=== PATIENT | female | born 1945 | race Caucasian/White ===

== ENCOUNTER → 2017-02-16 | Outpatient (CLI) | payer OTHER ==
[2016-05-06 09:22] VITALS: BP 182/75
[2017-02-16 09:22] LABS: CREATININE 1.15 mg/dL (0.55-1.02)
--- NOTE | 2017-02-17 11:11 | CT ---
HISTORY: Hematuria. Hypertension. Status post hysterectomy and cholecystectomy. Study: Computed tomography of the abdomen and pelvis: Multiple axial images were obtained throughou t the abdomen and pelvis after the ingestion of oral contrast and injection of intravascular contrast per standard protocol. Radiation dose reduction techniques utilized. Comparison: None Findings: There is minimal linear atelectatic change/infiltrate or scarring in the left lung base. No pleural effusions or parenchymal infiltrates are identified. Borderline cardiomegaly is noted. The patient is status post median sternotomy. There appears to most likely be the leads of an electronic cardiac device within the right atrium and 1 in the right ventricle. The abdomen demonstrates no focal lesions of the liver. Patient is status post cholecystectomy. Min imal biliary duct dilatation is noted, not an unexpected finding in a patient who is status post chol ecystectomy. Mild pancreatic atrophy is noted. The spleen is normal in its appearance. The adrenal glands are normal. The kidneys are normal. I see no evidence of renal calculi, ureteral calculi or hydronephrosis. Mild atherosclerotic changes noted in the abdominal aorta and its major branches. Atherosclerotic changes noted in the iliac arteries. Patient is status post hysterectomy. I see no adnexal masses. Scattered small phleboliths present. The bladder contour is smooth. A very tiny fa t containing umbilical hernia is noted. The stomach is nondistended. The duodenum is normal in its appearance. The small bowel is nondisten ded. I see no evidence of mesenteric adenopathy. The terminal ileum is normal. The appendix is nor mal. There are scattered diverticula extending from the cecum, ascending colon and transverse colon. There are numerous extending from the descending colon. Numerous extend from the sigmoid colon as well. I see no evidence of diverticulitis. The region of the rectum is normal. No evidence of pleu ral effusion is noted. Rijawid-ly-kihv degenerative changes noted in the hips. Moderate lumbar spondylosis is noted, predom inating at L2/L3 and L5/S1. IMPRESSION: 1. Diverticulosis of a moderate to moderately severe degree without evidence of diverticulitis. 2. I see no evidence of renal calculi, hydronephrosis or renal mass. The ureters are nondilated. T he bladder is smooth. Reported By:
== END | disposition home or self-care (01) | DRG 696 ==
LOC: RAD 08:56
PROVIDERS: ATTEND Nuclear Medicine Nuclear Cardiology
DX: R31.0 Gross hematuria (principal); K57.90 Diverticulosis of intestine, part unspecified, without perforation or abscess without bleeding
CPT/HCPCS: 36415; 74177; 82565; 84520

== ENCOUNTER 2017-07-14 10:38 | Observation (INO) | payer OTHER ==
[2017-07-14] MEDS ORDERED: PHENERGAN INJ 25 MG IVP PRN (11:45)
[2017-07-14] MEDS ORDERED: ZOFRAN INJ 4 MG VIAL IVP PRN (11:45)
[2017-07-14] MEDS ORDERED: PEPCID 20 MG IV PREMIX* 20 MG/50 ML BAG IV PRN (11:45)
--- NOTE | 2017-07-14 11:59 | DR.H&P ---
H&P - History & Physical for Day of: H&P Date: 07/14/17 - Chief Complaint Chief Complaint: N/V/D X 2 DAYS, WEAK - Allergies Allergies/Adverse Reactions: Allergies Allergy/AdvReac Type Severity Reaction Status Date / Time MS MU Inhibitors Allergy Verified 05/06/16 10:55 [MU Inhibitors] MS Ciprofloxacin [From Cipro] Allergy Verified 05/05/16 16:23 MS Metronidazole Allergy Verified 05/05/16 16:23 [From Flagyl] MS Nitrofurantoin Allergy Verified 05/06/16 10:55 [From Macrobid] - History of Present Illness History of Present Illness: The patient is a 71-year-old white female who presents to the Clinic with complaint of 2 day history of nausea vomiting and diarrhea. States she's vomited 4 times this morning. States blood pressure this morning at 6:30 was 189/87. In office setting blood pressure 94/64 and on repeat 86/58. States that she has had chills. Initial temp was 102.6 on repeat 103 Fahrenheit. The patient complains of upper abdominal pain. denies any hematochezia or melanotic stool. Does complain of burning with urination. Patient has history of CAD. - Past Medical History Past Medical History: Coronary Artery Disease, Hypertension Additional Medical History: Glaucoma, Stress test Negative [facility] 2016. - Past Surgical History Surgical History: CABG/Valve Surgery, Other - Family History Family Medical History: Heart Failure, Hypertension - Social History Does patient currently use any type of tobacco product: No Have you used tobacco products in the last 12 months: No Type of Tobacco Use: None Does any household member use tobacco: No Alcohol Use: None Drug Use: None - Review of Systems Constitutional: Fever, Chills, Weakness, Malaise Eyes: No Symptoms Reported ENT: No Symptoms Reported Respiratory: No Symptoms Reported Cardiovascular: No Symptoms Reported Gastrointestinal: Nausea, Vomiting, Abdominal Pain, Diarrhea Genitourinary: No Symptoms Reported Musculoskeletal: No Symptoms Reported Skin: No Symptoms Reported Neurological: No Symptoms Reported - Physical Exam Vital Signs: Blood Pressure [Right Arm] 182/75 Blood Pressure 182/75 Oriented: Normal Eyes: Normal Ear: Normal Nose: Normal Throat: Other (MUCOUS MEMBRANES TACHY) Respiratory: Clear Throughout Cardiovascular: Normal : Normal Auscultation: Bowel Sounds: Normal Palpation: Normal Tenderness: Diffuse, Epigastric Skin: Decreased Turgur Musculoskeletal: Normal Psychiatric: Normal Mood Description: Calm Affect: Normal Speech Pattern: Clear - Assessment/Plan (1) Acute gastroenteritis Status: Acute Plan: LABS, IV HYDRATION (2) Hypotension Status: Acute Plan: LABS, IV HYDRATION (3) Dehydration Status: Acute Plan: LABS, IV HYDRATION (4) Dysuria Status: Acute Plan: UA, UA C&S (5) Fever Status: Acute Plan: LABS, IV HYDRATION
[2017-07-14] MEDS: NS 1000 ML 1,000 ML IV SCH ×2 (12:13→22:01)
[2017-07-14 12:24] LABS: BASOPHILS % (AUTO) 0.4 % (0.2-1.0); EOSINOPHILS # (AUTO) 0.1 x10^3/uL (0.0-0.2); HEMATOCRIT 40.2 % (36.0-47.0); HEMOGLOBIN 13.9 g/dL (12.0-16.0); LYMPHOCYTES # (AUTO) 0.4 X10^3/uL (1.3-2.9); LYMPHOCYTES % (AUTO) 4.3 % (21.0-51.0); MEAN CORPUSCULAR HEMOGLOBIN 31.4 pg (27.0-34.0); MEAN CORPUSCULAR HGB CONC 34.5 g/dL (33.0-35.0); MEAN CORPUSCULAR VOLUME 91.1 fL (80.0-100.0); MEAN PLATELET VOLUME 8.6 fL (7.4-11.0); MONOCYTES # (AUTO) 0.2 x10^3/uL (0.3-0.8); MONOCYTES % (AUTO) 2.1 % (0.0-13.0); NEUTROPHILS % (AUTO) 92.2 % (42.0-75.0); PLATELET COUNT 176 X10^3/uL (150.0-450.0); RED BLOOD COUNT 4.41 X10^6/uL (3.5-5.4); RED CELL DISTRIBUTION WIDTH 13.7 % (11.6-16.5); WHITE BLOOD COUNT 8.7 X10^3/uL (3.6-10.0)
[2017-07-14 12:34] LABS: ALANINE AMINOTRANSFERASE 28 Units/L (12-78); ALBUMIN 3.6 g/dL (3.4-5.0); ALKALINE PHOSPHATASE 82 Units/L (46-116); AMYLASE 66 Units/L (25-115); ASPARTATE AMINO TRANSFERASE 28 Units/L (15-37); BLOOD UREA NITROGEN 28 mg/dL (7-18); CALCIUM 8.4 mg/dL (8.5-10.1); CARBON DIOXIDE 26.6 mmol/L (21-32); CHLORIDE 105 mmol/L (98-107); CREATININE 1.95 mg/dL (0.55-1.02); LIPASE 162 Units/L (73-393); SODIUM 141 mmol/L (136-145); TOTAL PROTEIN 6.7 g/dL (6.4-8.2); eGFR BLACK RACES 32 (>60); eGFR NON BLACK RACES 27 (>60)
[2017-07-14] MEDS: MORPHINE SULFATE INJ 2 MG INJ IVP PRN ×3 (12:38→21:19)
[2017-07-14 13:26] LABS: BAND NEUTROPHILS % 12 % (0-10)
[2017-07-14 13:27] LABS: PLATELET MORPHOLOGY COMMENT NORMAL (NORMAL)
[2017-07-14 13:35] VITALS: BMI 29.0
--- NOTE | 2017-07-14 14:18 | RAD ---
HISTORY: Nausea and vomiting. Epigastric pain. Study: Upright PA chest with supine and upright abdominal views Comparison: Chest radiograph 05/06/2016, CT of the abdomen pelvis 02/26/2017 Findings: Mild prominence of the lung markings is noted suggesting minimal pulmonary vascular congestion. The heart size is mildly enlarged. Patient is status post median sternotomy. Electronic cardiac device is present on the left with its leads appearing to be in appropriate position. The abdomen shows scattered large and small bowel gas. A couple of air-fluid levels are present. I see no definite evidence of bowel obstruction or pneumoperitoneum. Mild convex left lumbar scoliosis is noted. Mild degenerative changes present in the lumbar spine, sacroiliac joints and hips. IMPRESSION: 1. Mild cardiomegaly and findings suggesting minimal pulmonary vascular congestion. Underlying inte rstitial pneumonia cannot be excluded. 2. I see no definite evidence of bowel obstruction or pneumoperitoneum. Follow-up as clinically ind icated. Reported By:
[2017-07-14] MEDS: NORCO 5/325 MG TAB PO PRN (16:21)
[2017-07-14 18:51] LABS: BILIRUBIN,URINE NEGATIVE (NEGATIVE); BLOOD/HEMOGLOBIN,URINE 2+ (NEGATIVE); GLUCOSE, URINE NEGATIVE (NEGATIVE); KETONES,URINE NEGATIVE (NEGATIVE); LEUKOCYTE ESTERASE ,URINE 1+ (NEGATIVE); NITRITES,URINE NEGATIVE (NEGATIVE); PROTEIN,URINE 1+ (NEGATIVE); UROBILINOGEN,URINE NORMAL (NORMAL)
[2017-07-14 19:03] LABS: APPEARANCE,URINE CLEAR (CLEAR); COLOR,URINE AMBER (YELLOW)
[2017-07-14 19:04] LABS: AMORPHOUS SEDIMENT,UR 1+ /HPF (NEGATIVE); BACTERIA,URINE TRACE /HPF (NEGATIVE); SQUAMOUS EPITHELIAL CELL,UR MODERATE /HPF (NEGATIVE)
[2017-07-14] MEDS ORDERED: PATIENT'S HOME MEDICATION (Ondansetron [Ondansetron Odt] 4 MG) PO PRN (21:25)
[2017-07-14] MEDS: ROCEPHIN 1 GM IV PREMIX IV SCH (22:01)
[2017-07-15] MEDS: NORCO 5/325 MG TAB PO PRN (03:55)
[2017-07-15 06:33] LABS: BASOPHILS % (AUTO) 0.2 % (0.2-1.0); EOSINOPHILS # (AUTO) 0.4 x10^3/uL (0.0-0.2); EOSINOPHILS % (AUTO) 3.2 % (0.9-2.9); HEMATOCRIT 34.8 % (36.0-47.0); LYMPHOCYTES # (AUTO) 1.3 X10^3/uL (1.3-2.9); LYMPHOCYTES % (AUTO) 10.9 % (21.0-51.0); MEAN CORPUSCULAR HEMOGLOBIN 31.4 pg (27.0-34.0); MEAN CORPUSCULAR HGB CONC 34.6 g/dL (33.0-35.0); MEAN PLATELET VOLUME 8.9 fL (7.4-11.0); MONOCYTES # (AUTO) 0.8 x10^3/uL (0.3-0.8); MONOCYTES % (AUTO) 6.4 % (0.0-13.0); NEUTROPHILS # (AUTO) 9.8 x10^3/uL (2.2-4.8); NEUTROPHILS % (AUTO) 79.3 % (42.0-75.0); PLATELET COUNT 138 X10^3/uL (150.0-450.0); RED BLOOD COUNT 3.82 X10^6/uL (3.5-5.4); RED CELL DISTRIBUTION WIDTH 13.9 % (11.6-16.5); WHITE BLOOD COUNT 12.3 X10^3/uL (3.6-10.0)
[2017-07-15 06:38] LABS: BLOOD UREA NITROGEN 29 mg/dL (7-18); CHLORIDE 104 mmol/L (98-107); SODIUM 138 mmol/L (136-145); eGFR BLACK RACES 33 (>60); eGFR NON BLACK RACES 28 (>60)
--- NOTE | 2017-07-15 07:48 | RAD ---
HISTORY: Congestive heart failure Study: Chest AP portable Comparison: 05/05/2016 Findings: The patient is status post median sternotomy. There is a pacemaker present on the left obscuring the left lung apex. The heart is mildly enlarged. No congestive heart failure is noted. No acute alveolar infiltrates or pleural effusions are identified. The bony thorax is unremarkable. IMPRESSION: Mild cardiomegaly without congestive heart failure No infiltrates Reported By:
[2017-07-15] MEDS: PROTONIX TAB 40 MG PO SCH (08:50)
[2017-07-15] MEDS: ROCEPHIN 1 GM IV PREMIX IV SCH (08:50)
[2017-07-15] MEDS: CARAFATE PO SCH ×2 (08:50→21:27)
[2017-07-15] MEDS: CLARITIN PO SCH (08:50)
[2017-07-15] MEDS ORDERED: PATIENT'S HOME MEDICATION (Losartan Potassium [Losartan Potassium] 25 MG) PO SCH (09:00)
[2017-07-15] MEDS: COMBIGAN EYE DROPS EACHEYE SCH ×2 (09:11→21:28)
[2017-07-15] MEDS: COZAAR PO SCH (09:35)
[2017-07-15] MEDS: TOPROL XL PO SCH (09:35)
[2017-07-15] MEDS: NS 1000 ML 1,000 ML IV SCH ×2 (14:56→18:21)
[2017-07-15] MEDS: LIPITOR TAB 20 MG PO SCH (21:27)
[2017-07-16 06:28] LABS: BASOPHILS % (AUTO) 0.4 % (0.2-1.0); EOSINOPHILS # (AUTO) 0.4 x10^3/uL (0.0-0.2); HEMATOCRIT 34.9 % (36.0-47.0); LYMPHOCYTES # (AUTO) 1.6 X10^3/uL (1.3-2.9); LYMPHOCYTES % (AUTO) 22.1 % (21.0-51.0); MEAN CORPUSCULAR HEMOGLOBIN 31.4 pg (27.0-34.0); MEAN CORPUSCULAR HGB CONC 34.4 g/dL (33.0-35.0); MEAN CORPUSCULAR VOLUME 91.1 fL (80.0-100.0); MEAN PLATELET VOLUME 8.8 fL (7.4-11.0); MONOCYTES # (AUTO) 0.4 x10^3/uL (0.3-0.8); MONOCYTES % (AUTO) 5.4 % (0.0-13.0); NEUTROPHILS # (AUTO) 4.8 x10^3/uL (2.2-4.8); NEUTROPHILS % (AUTO) 66.1 % (42.0-75.0); PLATELET COUNT 146 X10^3/uL (150.0-450.0); RED BLOOD COUNT 3.83 X10^6/uL (3.5-5.4); RED CELL DISTRIBUTION WIDTH 13.8 % (11.6-16.5); WHITE BLOOD COUNT 7.3 X10^3/uL (3.6-10.0)
[2017-07-16 06:45] LABS: ALANINE AMINOTRANSFERASE 22 Units/L (12-78); ALBUMIN 2.8 g/dL (3.4-5.0); ALKALINE PHOSPHATASE 52 Units/L (46-116); ASPARTATE AMINO TRANSFERASE 25 Units/L (15-37); BLOOD UREA NITROGEN 19 mg/dL (7-18); CALCIUM 7.7 mg/dL (8.5-10.1); CARBON DIOXIDE 26.1 mmol/L (21-32); CHLORIDE 109 mmol/L (98-107); COR CA(FOR HYPOALB) 8.7 mg/dL (8.5-10.1); SODIUM 142 mmol/L (136-145); TOTAL PROTEIN 5.9 g/dL (6.4-8.2); eGFR BLACK RACES 52 (>60); eGFR NON BLACK RACES 43 (>60)
[2017-07-16] MEDS: TOPROL XL PO SCH (08:11)
[2017-07-16] MEDS: ROCEPHIN 1 GM IV PREMIX IV SCH (08:11)
[2017-07-16] MEDS: COZAAR PO SCH (08:11)
[2017-07-16] MEDS: CARAFATE PO SCH ×2 (08:11→21:31)
[2017-07-16] MEDS: PROTONIX TAB 40 MG PO SCH (08:12)
[2017-07-16] MEDS: CLARITIN PO SCH (08:12)
[2017-07-16] MEDS: COMBIGAN EYE DROPS EACHEYE SCH ×2 (08:13→21:31)
--- NOTE | 2017-07-16 14:48 | CT ---
HISTORY: Epigastric pain, nausea, vomiting Study: CT abdomen pelvis without contrast Comparison: 02/16/2017 Technique: Axial noncontrast images with coronal and sagittal reformats. Dose reduction procedures we re used with mA/kv adjusted for body size. The examination is limited due to the lack of intravenous contrast. Findings: The right lung base is clear. There is some subsegmental atelectasis in the left lung base. The liver , spleen, adrenal glands, and pancreas are within normal limits to the limitations of an unenhanced e xamination. The patient is status post cholecystectomy. The kidneys are unobstructed and without ston es. No ureteral calculi are identified. The appendix is normal. Calcific atherosclerotic change is pr esent in a nondilated abdominal aorta. No enlarged intraperitoneal or retroperitoneal lymphadenopathy is identified. There are no findings suggestive of diverticulitis or colitis. Diverticulosis is pres ent diffusely throughout the colon. Examination of the pelvis demonstrated no evidence for pelvic mas ses, pelvic fluid, or pelvic lymphadenopathy. No bladder abnormality is identified. No lytic or blast ic skeletal lesions are identified. IMPRESSION: No acute intra-abdominal or intrapelvic abnormality to the limitations of an examination performed wi thout intravenous contrast. Diffuse diverticulosis coli without evidence for diverticulitis No findings suggestive of colitis Reported By:
--- NOTE | 2017-07-16 15:23 | CT ---
Indication: Shortness of breath and pneumonia. Exam: CT chest without contrast. Comparison: None. Technique: Axial spiral images were obtained from the level above the clavicles through the adrenals without contrast. Automated dose control was utilized. Findings: The thyroid gland is unremarkable. There is mild calcified plaque throughout the aorta with moderate coronary artery calcifications. Postop changes are seen in the mediastinum and sternum. The re is a left pacemaker in place with the pacing wires in good position into the left heart. There is no mediastinal mass or adenopathy is seen. The adrenals are normal. There is a tiny left pleural effu bradley or pleural thickening with mild subsegmental linear densities along the lung base posteriorly an d extending into the lingula inferiorly. The adrenals are normal. The gallbladder has been removed an d the visualized upper abdomen is unremarkable. There are 3-4 mm pleural-based nodules or scar along the right lung base extending superiorly . There are moderate degenerate changes seen in the spine wi th no aggressive osseous lesion . There is mild scoliosis. Impression: Mild subsegmental atelectasis vs early infiltrates or scarring along the left lung base and lingula . There is a tiny left pleural effusion vs pleural thickening posteriorly. Suggest follow-up with ches t x-rays. Tiny pleural-based nodules or scars along the right lower lobe posteriorly, suggest short-term follow -up to assure stability or resolution. Status post CABG surgery with no mediastinal mass or adenopathy. Reported By:
[2017-07-16] MEDS: NS 1000 ML 1,000 ML IV SCH (18:07)
--- NOTE | 2017-07-16 18:18 | PCM.PROG ---
Progress Note - Progress Note for Day of Date: 07/16/17 - Subjective Subjective: 71 WF ADMITTED WITH S/O GE WITH N/V/D. PT STARTED ON IV ATBX, GENTLE IV HYDRATION WITH IMPROVED RENAL FUNCTION.PT HAS HX OF DIVERTICULOSIS, CT ORDERED TO R/O ACURE DIVERTICULITIS, COLITIS DUE TO REPORTS OF THICK MUCOUS IN STOOL. PT ALSO NPO FOR CT CHEST R/O PNEUMONIA VS EFFUSION. PT STATES SHE FEEL LITTLE BETTER TODAY, ASKING TO ADVANCE DIET. - Past Medical Family Social History Past Med/Fam/Surg Hx: No changes since H&P Allergies: Allergies MU Inhibitors Allergy (Verified 07/14/17 17:05) ciprofloxacin [From Cipro] Allergy (Verified 07/14/17 17:05) metronidazole [From Flagyl] Allergy (Verified 07/14/17 17:05) nitrofurantoin Allergy (Verified 07/14/17 17:05) - Vital Signs and I&O's Vital Signs: Temperature 97.8 F Pulse Rate [Left Brachial] 80 Respiratory Rate 18 Blood Pressure [Left Arm] 132/87 Blood Pressure [Right Arm] 131/59 Blood Pressure 182/75 O2 Sat by Pulse Oximetry 98 Intake and Output: Intake & Output 07/14/17 07/15/17 07/16/17 07/17/17 11:59 11:59 11:59 11:59 Intake Total 1380 2330 360 Balance 1380 2330 360 - Physical Exam Oriented: Normal Eyes: Normal Ear: Normal Nose: Normal Throat: Other (MUCOUS MEMBRANES TACHY) Respiratory: Diminished Cardiovascular: Normal : Normal Auscultation: Bowel Sounds: Normal Tenderness: Epigastric Skin: Decreased Turgur Musculoskeletal: Normal Psychiatric: Normal Mood Description: Calm Affect: Normal Speech Pattern: Clear, Appropriate - Laboratory and Diagnostics Result Diagrams: 07/16/17 05:34 07/16/17 05:34 Labs: 07/14/17 18:11 Urine,Clean Catch Urine Culture - Final Laboratory WBC 7.3 X10^3/uL (3.6-10.0) 07/16/17 05:34 RBC 3.83 X10^6/uL (3.5-5.4) 07/16/17 05:34 Hgb 12.0 g/dL (12.0-16.0) 07/16/17 05:34 Hct 34.9 % (36.0-47.0) L 07/16/17 05:34 MCV 91.1 fL (80.0-100.0) 07/16/17 05:34 MCH 31.4 pg (27.0-34.0) 07/16/17 05:34 MCHC 34.4 g/dL (33.0-35.0) 07/16/17 05:34 RDW 13.8 % (11.6-16.5) 07/16/17 05:34 Plt Count 146 X10^3/uL (150.0-450.0) L 07/16/17 05:34 Plt Count Comment Adequate (ADEQUATE) 07/14/17 12:10 MPV 8.8 fL (7.4-11.0) 07/16/17 05:34 Neut % (Auto) 66.1 % (42.0-75.0) 07/16/17 05:34 Lymph % (Auto) 22.1 % (21.0-51.0) 07/16/17 05:34 Carson % (Auto) 5.4 % (0.0-13.0) 07/16/17 05:34 Eos % (Auto) 6.0 % (0.9-2.9) H 07/16/17 05:34 Baso % (Auto) 0.4 % (0.2-1.0) 07/16/17 05:34 Neut # (Auto) 4.8 x10^3/uL (2.2-4.8) 07/16/17 05:34 Lymph # (Auto) 1.6 X10^3/uL (1.3-2.9) 07/16/17 05:34 Carson # (Auto) 0.4 x10^3/uL (0.3-0.8) 07/16/17 05:34 Eos # (Auto) 0.4 x10^3/uL (0.0-0.2) H 07/16/17 05:34 Baso # (Auto) 0.0 X10^3/uL (0.0-0.1) 07/16/17 05:34 Absolute Nucleated RBC 0.0 /100WBC 07/16/17 05:34 Total Counted 100 07/14/17 12:10 Neutrophils % (Manual) 70 % (39-76) 07/14/17 12:10 Band Neutrophils % 12 % (0-10) H 07/14/17 12:10 Lymphocytes % (Manual) 13 % (13-43) 07/14/17 12:10 Monocytes % (Manual) 2 % (4-9) L 07/14/17 12:10 Eosinophils % (Manual) 3 % (0-6) 07/14/17 12:10 Plt Morphology Comment Normal (NORMAL) 07/14/17 12:10 RBC Morphology Normal (NORMAL) 07/14/17 12:10 Sodium 142 mmol/L (136-145) 07/16/17 05:34 Corrected Sodium TNP 07/16/17 05:34 Potassium 3.7 mmol/L (3.5-5.1) 07/16/17 05:34 Chloride 109 mmol/L (98-107) H 07/16/17 05:34 Carbon Dioxide 26.1 mmol/L (21-32) 07/16/17 05:34 BUN 19 mg/dL (7-18) H 07/16/17 05:34 Creatinine 1.30 mg/dL (0.55-1.02) H 07/16/17 05:34 Est GFR (MDRD) Af Amer 52 (>60) L 07/16/17 05:34 Est GFR (MDRD) Non-Af 43 (>60) L 07/16/17 05:34 Glucose 83 mg/dL (65-99) 07/16/17 05:34 POC Glucose (mg/dL) 78 mg/dL (65-99) 07/14/17 15:57 Lactic Acid 1.8 mmol/L (0.4-2.0) 07/14/17 12:10 Calcium 7.7 mg/dL (8.5-10.1) L 07/16/17 05:34 Corrected Calcium 8.7 mg/dL (8.5-10.1) 07/16/17 05:34 Total Bilirubin 0.50 mg/dL (0.2-1.0) 07/16/17 05:34 AST 25 Units/L (15-37) 07/16/17 05:34 ALT 22 Units/L (12-78) 07/16/17 05:34 Alkaline Phosphatase 52 Units/L (46-116) 05/17/18 05:34 Total Protein 5.9 g/dL (6.4-8.2) L 07/16/17 05:34 Albumin 2.8 g/dL (3.4-5.0) L 07/16/17 05:34 Globulin 3.1 g/dL (2.5-4.5) 07/16/17 05:34 Albumin/Globulin Ratio 0.9 Ratio (1.1-2.1) L 07/16/17 05:34 Amylase 66 Units/L (25-115) 07/14/17 12:10 Lipase 162 Units/L (73-393) 07/14/17 12:10 Specimen Type Clean catch urine 07/14/17 18:11 Urine Color Thao (YELLOW) 07/14/17 18:11 Urine Appearance Clear (CLEAR) 07/14/17 18:11 Urine pH 5.0 (5.0 - 8.0) 07/14/17 18:11 Ur Specific [place] 1.010 (1.000-1.030) 07/14/17 18:11 Urine Protein 1+ (NEGATIVE) 07/14/17 18:11 Urine Glucose (UA) Negative (NEGATIVE) 07/14/17 18:11 Urine Ketones Negative (NEGATIVE) 07/14/17 18:11 Urine Occult Blood 2+ (NEGATIVE) 07/14/17 18:11 Urine Nitrite Negative (NEGATIVE) 07/14/17 18:11 Urine Bilirubin Negative (NEGATIVE) 07/14/17 18:11 Urine Urobilinogen Normal (NORMAL) 07/14/17 18:11 Ur Leukocyte Esterase 1+ (NEGATIVE) 07/14/17 18:11 Urine RBC 3-5 /HPF (NONE SEEN) 07/14/17 18:11 Urine WBC 3-5 /HPF (NONE SEEN) 07/14/17 18:11 Ur Squamous Epith Cells Moderate /HPF (NEGATIVE) 07/14/17 18:11 Amorphous Sediment 1+ /HPF (NEGATIVE) 07/14/17 18:11 Urine Bacteria Trace /HPF (NEGATIVE) 07/14/17 18:11 Ur Culture Indicated? Yes/culture set up 07/14/17 18:11 - Plan (1) Acute gastroenteritis Status: Acute Plan: LABS, IV HYDRATION, ATBX. STOOL STUDIES. CT ABD PELVIS, UA AND URINE CULTURES (2) Dehydration Status: Acute Plan: LABS, IV HYDRATION (3) CAD (coronary artery disease) Status: Acute Plan: BP AND LIPID CONTROL (4) CHF (congestive heart failure) Status: Acute (5) GERD (gastroesophageal reflux disease) Status: Chronic (6) Hypertension Status: Chronic Qualifiers: Hypertension type: essential hypertension Qualified Code(s): I10 - Essential (primary) hypertension
[2017-07-16] MEDS ORDERED: LASIX IVP SCH (19:00)
[2017-07-16] MEDS: LIPITOR TAB 20 MG PO SCH (21:31)
[2017-07-16] MEDS ORDERED: LASIX ONE (21:33)
[2017-07-17 00:30] LABS: CRYPTOSPORIDIUM PARVUM ANTIGEN NEGATIVE (NEGATIVE); GIARDIA LAMBLIA ANTIGEN NEGATIVE (NEGATIVE)
[2017-07-17] MEDS: NS 1000 ML 1,000 ML IV SCH (04:27)
[2017-07-17 06:42] LABS: BASOPHILS # (AUTO) 0.1 X10^3/uL (0.0-0.1); BASOPHILS % (AUTO) 1.4 % (0.2-1.0); EOSINOPHILS # (AUTO) 0.3 x10^3/uL (0.0-0.2); EOSINOPHILS % (AUTO) 5.5 % (0.9-2.9); HEMATOCRIT 36.1 % (36.0-47.0); HEMOGLOBIN 12.6 g/dL (12.0-16.0); LYMPHOCYTES # (AUTO) 2.2 X10^3/uL (1.3-2.9); LYMPHOCYTES % (AUTO) 34.8 % (21.0-51.0); MEAN CORPUSCULAR HEMOGLOBIN 31.5 pg (27.0-34.0); MEAN CORPUSCULAR HGB CONC 34.9 g/dL (33.0-35.0); MEAN CORPUSCULAR VOLUME 90.3 fL (80.0-100.0); MEAN PLATELET VOLUME 8.8 fL (7.4-11.0); MONOCYTES # (AUTO) 0.4 x10^3/uL (0.3-0.8); MONOCYTES % (AUTO) 6.7 % (0.0-13.0); NEUTROPHILS # (AUTO) 3.3 x10^3/uL (2.2-4.8); NEUTROPHILS % (AUTO) 51.6 % (42.0-75.0); PLATELET COUNT 175 X10^3/uL (150.0-450.0); RED BLOOD COUNT 3.99 X10^6/uL (3.5-5.4); RED CELL DISTRIBUTION WIDTH 13.4 % (11.6-16.5); WHITE BLOOD COUNT 6.3 X10^3/uL (3.6-10.0)
[2017-07-17 06:52] LABS: ALANINE AMINOTRANSFERASE 24 Units/L (12-78); ALBUMIN 3.2 g/dL (3.4-5.0); ALKALINE PHOSPHATASE 62 Units/L (46-116); ASPARTATE AMINO TRANSFERASE 26 Units/L (15-37); BLOOD UREA NITROGEN 16 mg/dL (7-18); CALCIUM 8.2 mg/dL (8.5-10.1); CARBON DIOXIDE 27.2 mmol/L (21-32); CHLORIDE 106 mmol/L (98-107); COR CA(FOR HYPOALB) 8.8 mg/dL (8.5-10.1); CREATININE 1.22 mg/dL (0.55-1.02); SODIUM 140 mmol/L (136-145); TOTAL PROTEIN 6.5 g/dL (6.4-8.2); eGFR BLACK RACES 56 (>60); eGFR NON BLACK RACES 46 (>60)
[2017-07-17] MEDS: COZAAR PO SCH (08:43)
[2017-07-17] MEDS: CARAFATE PO SCH (08:43)
[2017-07-17] MEDS: ROCEPHIN 1 GM IV PREMIX IV SCH (08:43)
[2017-07-17] MEDS: CLARITIN PO SCH (08:44)
[2017-07-17] MEDS: PROTONIX TAB 40 MG PO SCH (08:44)
[2017-07-17] MEDS: COMBIGAN EYE DROPS EACHEYE SCH (08:44)
[2017-07-17] MEDS: TOPROL XL PO SCH (08:44)
[2017-07-17 12:56] VITALS: BP 144/65
== END 2017-07-17 12:55 | disposition home or self-care (01) | DRG 392 ==
LOC: OBS 10:38 → UNDOADMOB 10:38 → OBS 11:25 → MED/SURG 14:20
PROVIDERS: ADMIT Internal Medicine; ATTEND Internal Medicine
DX: K52.89 Other specified noninfective gastroenteritis and colitis (principal); E86.0 Dehydration; I95.89 Other hypotension; R94.4 Abnormal results of kidney function studies; R11.2 Nausea with vomiting, unspecified; R19.7 Diarrhea, unspecified; I25.10 Atherosclerotic heart disease of native coronary artery without angina pectoris; R30.0 Dysuria; I50.9 Heart failure, unspecified; I10 Essential (primary) hypertension
CPT/HCPCS: 36415; 71045; 71250; 74022; 74176; 80048; 80053; 81001; 82150; 82274; 82705; 83605; 83690; 85025; 87045; 87086; 87328; 87329; 87336; 87427; 87449; 87493; 94760; A4222; S0028; G0378; J0696; J1940; J2270; J2405

== ENCOUNTER 2022-02-19 11:46 | Observation (INO) ==
--- NOTE | 2022-02-19 13:56 | EKG ---
Test Reason : CHEST PAIN Blood Pressure : */* mmHG Vent. Rate : 64 BPM Atrial Rate : 64 BPM P-R Int : 174 ms QRS Dur : 86 ms QT Int : 422 ms P-R-T Axes : 54 23 93 degrees QTc Int : 435 ms Atrial-paced rhythm Nonspecific ST and T wave abnormality Abnormal ECG No previous ECGs available Confirmed by Jose Gauthier ([id number]) on 02/20/2022 8:00:33 AM Referred By: Confirmed By: Jose Gauthier
[2022-02-19 14:59] LABS: BASOPHILS % (AUTO) 0.5 % (0.2-1.0); EOSINOPHILS # (AUTO) 0.3 x10^3/uL (0.0-0.2); EOSINOPHILS % (AUTO) 4.1 % (0.9-2.9); HEMATOCRIT 43.1 % (36.0-47.0); HEMOGLOBIN 14.5 g/dL (12.0-16.0); LYMPHOCYTES # (AUTO) 2.6 X10^3/uL (1.3-2.9); LYMPHOCYTES % (AUTO) 33.5 % (21.0-51.0); MEAN CORPUSCULAR HEMOGLOBIN 31.3 pg (27.0-34.0); MEAN CORPUSCULAR HGB CONC 33.8 g/dL (33.0-35.0); MEAN CORPUSCULAR VOLUME 92.6 fL (80.0-100.0); MEAN PLATELET VOLUME 8.6 fL (7.4-11.0); MONOCYTES # (AUTO) 0.7 x10^3/uL (0.3-0.8); MONOCYTES % (AUTO) 9.1 % (0.0-13.0); NEUTROPHILS # (AUTO) 4.1 x10^3/uL (2.2-4.8); NEUTROPHILS % (AUTO) 52.8 % (42.0-75.0); RED BLOOD COUNT 4.65 X10^6/uL (3.5-5.4); RED CELL DISTRIBUTION WIDTH 14.2 % (11.6-16.5); WHITE BLOOD COUNT 7.7 X10^3/uL (3.6-10.0)
[2022-02-19 15:21] LABS: ALANINE AMINOTRANSFERASE 18 Units/L (12-78); ALBUMIN 3.6 g/dL (3.4-5.0); ALKALINE PHOSPHATASE 77 Units/L (46-116); ASPARTATE AMINO TRANSFERASE 27 Units/L (15-37); BLOOD UREA NITROGEN 21 mg/dL (7-18); CALCIUM 8.9 mg/dL (8.5-10.1); CARBON DIOXIDE 29.5 mmol/L (21-32); CHLORIDE 108 mmol/L (98-107); CREATINE KINASE 131 Units/L (26-192); CREATININE 1.64 mg/dL (0.55-1.02); FREE T4 (FREE THYROXINE) 0.97 ng/dL (0.76-1.46); SODIUM 141 mmol/L (136-145); TOTAL PROTEIN 6.7 g/dL (6.4-8.2); TSH (3RD GENERATION) 2.121 uIU/mL (0.358-3.74); eGFR NON BLACK RACES 32 (>60)
[2022-02-19] MEDS: LOVENOX INJ 30 MG SYR SC SCH (16:13)
[2022-02-19] MEDS: CARAFATE PO SCH ×3 (16:20→21:39)
--- NOTE | 2022-02-19 20:31 | EKG ---
Test Reason : CHEST PAIN Blood Pressure : */* mmHG Vent. Rate : 63 BPM Atrial Rate : 63 BPM P-R Int : 198 ms QRS Dur : 76 ms QT Int : 418 ms P-R-T Axes : -27 27 105 degrees QTc Int : 427 ms Atrial-paced rhythm Abnormal ECG When compared with ECG of 19-FEB-2022 13:50, (Unconfirmed) T wave inversion less evident in Anterolateral leads Confirmed by Jose Gauthier ([id number]) on 02/20/2022 7:59:46 AM Referred By: Confirmed By: Jose Gauthier
[2022-02-19] MEDS: REQUIP PO SCH ×2 (21:33→21:40)
[2022-02-19] MEDS: CRESTOR TAB 10 MG PO SCH ×2 (21:34→21:40)
[2022-02-19] MEDS: PriLOSEC PO SCH ×2 (21:34→21:39)
[2022-02-19] MEDS: PATIENT'S HOME MEDICATION EACHEYE SCH (21:35)
--- NOTE | 2022-02-20 00:27 | DR.H&P ---
H&P - History & Physical for Day of: H&P Date: 02/19/22 - Chief Complaint Chief Complaint: Chest pain, tightness with shortness of breath - History of Present Illness History of Present Illness: The patient is a 76 yo WF who presents to [facility] with complaints of chest discomfort. Patient has history of CAD with CABG x 3 and Pacemaker insertion 2017. STates that she has been having episodes of tightness/squeezing sensation to chest with increasing fatigue and shortness of breath. States she does not have to be active for episodes to occur. States that symptoms started in December with SOB on exertion. Denies wheezing. States she is having mild swelling to lower legs. States the last 2 days she has been sitting down. States she has not felt like doing anything. Denies nausea. No other comlaints or symptoms voiced. - Past Medical History Past Medical History: Coronary Artery Disease, Hypertension Additional Medical History: Glaucoma, Stress test Negative [facility] 2017. - Past Surgical History Surgical History: CABG/Valve Surgery, Cholecystectomy, Hysterectomy - Family History Family Medical History: [place], Heart Failure - Social History Does patient currently use any type of tobacco product: No Have you used tobacco products in the last 12 months: No Type of Tobacco Use: None Does any household member use tobacco: No Alcohol Use: None Drug Use: None Risks, benefits, and alternatives of opioids discussed: No Prescription drug monitoring program results: PDMP reviewed and no concerns identified - Medications Home Medications: ciprofloxacin [From Cipro] Allergy (Mild, Verified 04/16/21 07:54) RASH clindamycin Allergy (Mild, Verified 04/16/21 07:54) NAUSEA metronidazole [From Flagyl] Allergy (Mild, Verified 04/16/21 07:54) NAUSEA Penicillins Allergy (Mild, Verified 04/16/21 07:54) NAUSEA MU Inhibitors Allergy (Unknown, Verified 04/16/21 07:54) nitrofurantoin Allergy (Unknown, Verified 04/16/21 07:54) amoxicillin [From Augmentin] Allergy (Verified 04/30/21 11:43) clavulanic acid [From Augmentin] Allergy (Verified 04/30/21 11:43) CONTINUE taking the following medications aspirin 81 mg tablet,delayed release 81 mg PO QDAY 02/19/22 [History] brimonidine 0.2 %-timolol 0.5 % eye drops (Combigan) 1 drp ophthalmic (eye) DAILY 02/19/22 [History] cholecalciferol (vitamin D3) 50 mcg (2,000 unit) capsule (Vitamin D3) 50 mcg PO DAILY 02/19/22 [History] latanoprostene bunod 0.024 % eye drops (Vyzulta) 1 drp ophthalmic (eye) DAILY 02/19/22 [History] metoprolol succinate 50 mg tablet,extended release 24 hr 1 tab PO QDAY 02/19/22 [History] omeprazole 40 mg capsule,delayed release 1 cap PO BID 02/19/22 [History] potassium chloride 10 mEq tablet,extended release(part/cryst) 1 tab PO QDAY 02/19/22 [History] ropinirole 0.5 mg tablet 1 tab PO QPM 02/19/22 [History] rosuvastatin 40 mg tablet 1 tab PO QDAY 02/19/22 [History] sucralfate 1 gram tablet 1 tab PO QID 02/19/22 [History] - Review of Systems Constitutional: Malaise Eyes: Redness ENT: No Symptoms Reported Respiratory: Shortness of Breath, SOB with Excertion Cardiovascular: Chest Pain, See HPI, Orthopnea, Edema Gastrointestinal: No Symptoms Reported Genitourinary: No Symptoms Reported Musculoskeletal: No Symptoms Reported Skin: No Symptoms Reported Neurological: No Symptoms Reported - Physical Exam Vital Signs: Temperature 97.5 F Pulse Rate [Radial] 61 Respiratory Rate 18 Blood Pressure [Left Arm] 141/61 Blood Pressure [Right Arm] 131/59 Blood Pressure 140/78 O2 Sat by Pulse Oximetry 100 Oriented: Normal, Time, Person, Place Eyes: Redness Ear: Normal Nose: Normal Throat: Normal Respiratory: Clear Throughout Cardiovascular: Normal : Normal Auscultation: Bowel Sounds: Normal Palpation: Normal Tenderness: Normal Skin: Normal Musculoskeletal: Normal Psychiatric: Normal Mood Description: Calm Affect: Normal Speech Pattern: Clear - Assessment/Plan (1) Chest pain due to CAD Status: Acute Plan: Seriel EKGs, Troponins. Probable transfer to Dr Chun, Cardiology [facility]. (2) CKD (chronic kidney disease) stage 3, GFR 30-59 ml/min Status: Acute Plan: Gentle IV Hydration (3) CAD (coronary artery disease) Qualifiers: Coronary Disease-Associated Artery/Lesion type: bypass graft Associated angina: with unstable angina Status: Acute (4) Hypertension Qualifiers: Hypertension type: secondary to other renal disorders Qualified Code(s): I15.1 - Hypertension secondary to other renal disorders; N28.89 - Other specified disorders of kidney and ureter Status: Chronic Plan: Monitor BP - Allergies Allergies/Adverse Reactions: Allergies Allergy/AdvReac Type Severity Reaction Status Date / Time ciprofloxacin [From Cipro] Allergy Mild RASH Verified 04/16/21 07:54 clindamycin Allergy Mild NAUSEA Verified 04/16/21 07:54 metronidazole [From Flagyl] Allergy Mild NAUSEA Verified 04/16/21 07:54 Penicillins Allergy Mild NAUSEA Verified 04/16/21 07:54 MU Inhibitors Allergy Unknown Verified 04/16/21 07:54 nitrofurantoin Allergy Unknown Verified 04/16/21 07:54 amoxicillin [From Augmentin] Allergy Verified 04/30/21 11:43 clavulanic acid Allergy Verified 04/30/21 11:43 [From Augmentin]
--- NOTE | 2022-02-20 01:00 | EKG ---
Test Reason : CHEST PAIN Blood Pressure : */* mmHG Vent. Rate : 66 BPM Atrial Rate : 66 BPM P-R Int : 208 ms QRS Dur : 78 ms QT Int : 422 ms P-R-T Axes : -20 31 94 degrees QTc Int : 442 ms Atrial-paced rhythm Abnormal QRS-T angle, consider primary T wave abnormality Abnormal ECG When compared with ECG of 19-FEB-2022 20:26, (Unconfirmed) No significant change was found Confirmed by Jose Gauthier ([id number]) on 02/20/2022 7:58:46 AM Referred By: Confirmed By: Jose Gauthier
[2022-02-20] MEDS: CARAFATE PO SCH (06:09)
--- NOTE | 2022-02-20 06:13 | RAD ---
HISTORYchest pain Relevant Clinical InformationSTUDYCHEST, 1 VIEWCOMPARISONNoneFINDINGSThe trachea is midline. The cardiac silhouette is unremarkable. Median sternotomy wires and mediastinal clips. Permanent pacing device. The lungs are clear without focal infiltrate or effusion. The bony thorax is unremarkable.IMPRESSIONNo acute cardiopulmonary findings .Electronically signed by: Tommie Killian (Feb 20, 2022 06:11:11)
[2022-02-20 06:14] LABS: BASOPHILS % (AUTO) 0.4 % (0.2-1.0); EOSINOPHILS # (AUTO) 0.3 x10^3/uL (0.0-0.2); EOSINOPHILS % (AUTO) 5.1 % (0.9-2.9); HEMATOCRIT 42.7 % (36.0-47.0); HEMOGLOBIN 14.3 g/dL (12.0-16.0); LYMPHOCYTES # (AUTO) 2.2 X10^3/uL (1.3-2.9); MEAN CORPUSCULAR HEMOGLOBIN 30.9 pg (27.0-34.0); MEAN CORPUSCULAR HGB CONC 33.6 g/dL (33.0-35.0); MEAN CORPUSCULAR VOLUME 91.9 fL (80.0-100.0); MEAN PLATELET VOLUME 8.7 fL (7.4-11.0); MONOCYTES # (AUTO) 0.6 x10^3/uL (0.3-0.8); MONOCYTES % (AUTO) 9.9 % (0.0-13.0); NEUTROPHILS # (AUTO) 3.3 x10^3/uL (2.2-4.8); NEUTROPHILS % (AUTO) 50.6 % (42.0-75.0); RED BLOOD COUNT 4.64 X10^6/uL (3.5-5.4); RED CELL DISTRIBUTION WIDTH 13.9 % (11.6-16.5); WHITE BLOOD COUNT 6.5 X10^3/uL (3.6-10.0)
[2022-02-20 06:20] LABS: ALANINE AMINOTRANSFERASE 15 Units/L (12-78); ALBUMIN 3.5 g/dL (3.4-5.0); ALKALINE PHOSPHATASE 78 Units/L (46-116); ASPARTATE AMINO TRANSFERASE 23 Units/L (15-37); BLOOD UREA NITROGEN 18 mg/dL (7-18); CALCIUM 9.1 mg/dL (8.5-10.1); CHLORIDE 108 mmol/L (98-107); SODIUM 142 mmol/L (136-145); TOTAL PROTEIN 6.7 g/dL (6.4-8.2); eGFR NON BLACK RACES 39 (>60)
[2022-02-20] MEDS ORDERED: ASPIRIN EC 81 MG PO SCH (09:00)
[2022-02-20] MEDS ORDERED: ISOSORBIDE MONONITRATE ER 24-HR PO SCH (09:00)
[2022-02-20] MEDS ORDERED: VITAMIN D3 25 mcg (1,000 UNITS) PO SCH (09:00)
[2022-02-20] MEDS ORDERED: TOPROL XL PO SCH (09:00)
[2022-02-20] MEDS ORDERED: K-DUR TAB 20 MEQ PO SCH (09:00)
[2022-02-20] MEDS: PriLOSEC PO SCH (09:03)
[2022-02-20] MEDS: LOVENOX INJ 30 MG SYR SC SCH (09:10)
[2022-02-20 10:40] VITALS: BP 129/61
[2022-02-20] MEDS: PATIENT'S HOME MEDICATION EACHEYE SCH (10:41)
== END 2022-02-20 11:45 | disposition short-term general hospital (02) ==
LOC: MED/SURG
PROVIDERS: ADMIT Internal Medicine; ATTEND Internal Medicine
DX: R06.02 Shortness of breath; R53.83 Other fatigue; N18.30 Chronic kidney disease, stage 3 unspecified; I13.10 Hypertensive heart and chronic kidney disease without heart failure, with stage 1 through stage 4 chronic kidney disease, or unspecified chronic kidney disease; R07.89 Other chest pain; R94.31 Abnormal electrocardiogram [ECG] [EKG]; M79.89 Other specified soft tissue disorders; I25.10 Atherosclerotic heart disease of native coronary artery without angina pectoris